=== PATIENT | female | born 1990 | race Caucasian/White ===

== ENCOUNTER → 2020-11-28 | Outpatient (CLI) | payer OTHER ==
[2020-11-28 09:10] LABS: HEMOGLOBIN 13.2 gm/dl (12.3-15.3); RED BLOOD COUNT 4.65 M/UL (4.00-5.10); WHITE BLOOD COUNT 10.3 K/UL (4.5-11.0)
[2020-11-28 09:24] LABS: BUN/CREATININE RATIO 12 (0-10)
== END ==
LOC: LAB 08:31
PROVIDERS: Nurse Practitioner Family
DX: R79.89 Other specified abnormal findings of blood chemistry (principal); J01.00 Acute maxillary sinusitis, unspecified; E78.5 Hyperlipidemia, unspecified; E55.9 Vitamin D deficiency, unspecified
CPT/HCPCS: 36415; 80053; 80061; 84439; 84443; 85025